=== PATIENT | male | born 1975 | race Native Hawaiian/Other Pacific Islander ===

== ENCOUNTER 2018-11-14 08:02 | Outpatient (CLI) | payer BC | END 2018-11-14 08:03 | disposition home or self-care (01) | LOC: C.USIC 08:02 ==

== ENCOUNTER 2018-11-25 13:48 | Outpatient (CLI) | payer BC | END 2018-11-25 13:49 | disposition home or self-care (01) | LOC: C.CTH 13:48 | DX: D47.3 Essential (hemorrhagic) thrombocythemia (principal) ==